=== PATIENT | male | born 1990 | race Caucasian/White ===

== ENCOUNTER 2017-08-01 06:32 | Inpatient (IN) | payer OTHER ==
[~2017-08-01] VITALS: Ht 180.3 cm; Wt 67.6 kg
[2017-08-01] MEDS ORDERED: POVIDONE IODINE 10 % TOPICAL OINT 30GM TOP ONE (06:48)
[2017-08-01] MEDS ORDERED: ceFAZolin 1GM VL ONE (06:48)
[2017-08-01] MEDS ORDERED: BUPIVACAINE 0.25% INJ 50ML VIAL ONE (06:48)
[2017-08-01] MEDS ORDERED: LIDOCAINE 1% HCL (LOCAL ANESTH.) INJ 20ML MDV ONE ×2 (06:48→07:22)
[2017-08-01] MEDS ORDERED: LEVOFLOXACIN 500MG 100 ML IV ONE (07:16)
[2017-08-01] MEDS ORDERED: SUCCINYLCHOLINE CHLORIDE 20 MG/ML 10ML VIAL IV ONE (07:22)
[2017-08-01] MEDS ORDERED: MIDAZOLAM HCL 1MG/1ML-2 ML VIAL ONE (07:25)
[2017-08-01] MEDS ORDERED: PROPOFOL 10 MG/ML 20 ML IV ONE ×2 (07:27→08:03)
[2017-08-01] MEDS ORDERED: LIDOCAINE HCL 2% TOP JELLY 5ML TOP ONE (07:30)
[2017-08-01] MEDS ORDERED: fentaNYL CITRATE 100 MCG/2 ML VL ONE (07:37)
[2017-08-01] MEDS ORDERED: NALOXONE HCL 0.4 MG/ML VIAL IV PRN (07:45)
[2017-08-01] MEDS ORDERED: MORPHINE SULFATE 4 MG/ML SYR/VIAL IV PRN (07:45)
[2017-08-01] MEDS ORDERED: LIDOCAINE W/ EPINEPHRINE 2% INJ 20ML VIAL ONE (07:45)
[2017-08-01] MEDS ORDERED: ONDANSETRON HCL 4 MG/2 ML VIAL IV ONE (07:45)
[2017-08-01] MEDS ORDERED: METOCLOPRAMIDE HCL 5MG/ml INJ 2ml VIAL IV ONE (07:45)
[2017-08-01] MEDS ORDERED: KETOROLAC TROMETH 30 MG/ML 1ML VIAL ONE (07:59)
[2017-08-01 12:27] VITALS: BP 137/77
[2017-08-01] MEDS: HYDROcodone-ACET 10/325MG TAB PO PRN ×2 (12:57→20:18)
[2017-08-01 16:11] VITALS: BP 132/68
[2017-08-01 21:45] VITALS: BP 140/84
[2017-08-02] MEDS: HYDROcodone-ACET 10/325MG TAB PO PRN ×3 (03:51→14:09)
[2017-08-02 05:00] VITALS: BP 138/97
[2017-08-02 09:00] VITALS: BP 135/87
[2017-08-02 13:00] VITALS: BP 138/75
[2017-08-02 13:19] VITALS: BP 135/87
== END 2017-08-02 17:10 | DRG 352 ==
LOC: SUR 06:32 → EEVIPCON 06:33 → TELE-E-ADS 06:33 → EAST 12:53
PROVIDERS: ADMIT Internal Medicine; ATTEND Internal Medicine
PROC: 0YQ50ZZ Repair Right Inguinal Region, Open Approach (ICD-10-PCS; principal; 2017-08-01 07:25)
DX: K40.30 Unilateral inguinal hernia, with obstruction, without gangrene, not specified as recurrent (principal); F12.90 Cannabis use, unspecified, uncomplicated; N43.3 Hydrocele, unspecified; Z87.891 Personal history of nicotine dependence
CPT/HCPCS: 88302; J0330; J0690; J1885; J1956; J2001; J2250; J2704; J3490